=== PATIENT | male | born 1970 | race Caucasian/White ===

== ENCOUNTER 2022-06-30 17:44 | Emergency (ER) | payer MEDICAID ==
[2022-06-30] MEDS ORDERED: Thiamine 100 MG Tab PO ONE (18:26)
[2022-06-30] MEDS ORDERED: Folic Acid 1 MG Tab PO ONE (18:26)
[2022-06-30] MEDS ORDERED: Multivitamins with Iron/Calcium/Folic Acid/Minerals Tab PO ONE (18:32)
[2022-06-30 19:28] LABS: ESTIMATED GFR 111 mL/min (>60)
== END 2022-06-30 20:38 | disposition home or self-care (01) ==
LOC: JP.ED 17:44
DX: S00.03XA Contusion of scalp, initial encounter (principal); G62.9 Polyneuropathy, unspecified; D52.9 Folate deficiency anemia, unspecified; R74.01 Elevation of levels of liver transaminase levels; F10.920 Alcohol use, unspecified with intoxication, uncomplicated; J44.9 Chronic obstructive pulmonary disease, unspecified; I10 Essential (primary) hypertension; F17.210 Nicotine dependence, cigarettes, uncomplicated; Z88.0 Allergy status to penicillin; Z79.899 Other long term (current) drug therapy; Z79.82 Long term (current) use of aspirin; Z86.16 Personal history of COVID-19; W01.10XA Fall on same level from slipping, tripping and stumbling with subsequent striking against unspecified object, initial encounter
CPT/HCPCS: 36415; 70450; 72125; 80053; 80307; 82607; 82746; 84443; 85025; 93005; 99285; A9270